=== PATIENT | female | born 1970 | race Caucasian/White ===

== ENCOUNTER 2018-08-13 05:52 | Day surgery (SDC) | payer OTHER ==
[~2018-08-13] VITALS: Ht 165.1 cm; Wt 95.3 kg
[~2018-08-13 05:52] MED LIST: LEVONOR/ETHI PO
[2018-08-13] MEDS ORDERED: LR 1,000 ML IV ONE (06:00)
[2018-08-13 06:22] LABS: HEMATOCRIT 40.9 % (36.0-47.0); HEMOGLOBIN 13.2 g/dl (12.0-15.5); MEAN CORPUSCULAR HEMOGLOBIN 28.6 pg (27.0-33.0); MEAN CORPUSCULAR HGB CONC 32.3 g/dl (32.0-36.5); MEAN CORPUSCULAR VOLUME 88.5 fl (80.0-96.0); PLATELET COUNT, AUTOMATED 274 10^3/uL (150-450); RED BLOOD COUNT 4.62 10^6/uL (4.00-5.40); WHITE BLOOD COUNT 10.6 10^3/uL (4.0-10.0)
[2018-08-13 06:50] LABS: URINE PREG TEST NEGATIVE (NEGATIVE)
[2018-08-13] MEDS ORDERED: MIDAZOLAM INJ 2 MG/2 ML VIAL (J2250) As Ordered ONE (07:28)
[2018-08-13] MEDS ORDERED: fentaNYL 100 MCG/2 ML INJECTION (J3010) As Ordered ONE (07:28)
[2018-08-13] MEDS ORDERED: ROCURONIUM BROMIDE 50 MG/5 ML VIAL As Ordered ONE ×2 (07:28→08:05)
[2018-08-13] MEDS ORDERED: PROPOFOL 200 MG/20 ML VIAL As Ordered ONE (07:28)
[2018-08-13] MEDS ORDERED: METHYLENE BLUE 0.5% (5MG/ML) 10 ML AMP (PROVAYBLUE)(Q9968 PER 1MG) As Ordered ONE (07:33)
[2018-08-13] MEDS ORDERED: BUPIVACAINE HCL 0.25% 10 ML VIAL As Ordered ONE (07:33)
[2018-08-13] MEDS ORDERED: LIDOCAINE 2% INJ 100 MG/5 ML SDV (FOR ANES.) As Ordered ONE (07:44)
[2018-08-13] MEDS ORDERED: dexameTHASONE 4 MG/ML 1ML VIAL (J1100) As Ordered ONE (07:44)
[2018-08-13] MEDS ORDERED: METOCLOPRAMIDE INJ 10MG/2ML VIAL (J2765) As Ordered ONE (07:44)
[2018-08-13] MEDS ORDERED: ONDANSETRON 4MG/2ML VIAL (J2405) As Ordered ONE (07:44)
[2018-08-13] MEDS ORDERED: PHENYLephrine HCL 500 MCG/5 ML (100MCG/ML) SYRINGE (J2370) As Ordered ONE (07:48)
[2018-08-13] MEDS ORDERED: KETOROLAC 60 MG/2 ML VIAL (J1885) As Ordered ONE (07:50)
[2018-08-13] MEDS ORDERED: HYDROmorphone HCL 2 MG/ML 1ML VIAL (J1170) As Ordered ONE (08:09)
[2018-08-13] MEDS ORDERED: OXYC1TAB23 PO (09:19)
[2018-08-13] MEDS ORDERED: IBUP80TA PO (09:20)
[2018-08-13] MEDS ORDERED: PERCOCET 5MG/325MG TAB PO PRN ×3 (09:45→10:00)
[2018-08-13] MEDS ORDERED: fentaNYL 100 MCG/2 ML INJECTION (J3010) IV PRN (09:45)
[2018-08-13] MEDS ORDERED: ONDANSETRON 4MG/2ML VIAL (J2405) IV PRN ×2 (09:45→10:00)
[2018-08-13] MEDS ORDERED: LR 1,000 ML IV SCH ×2 (09:45→10:00)
[2018-08-13] MEDS ORDERED: METOCLOPRAMIDE INJ 10MG/2ML VIAL (J2765) IV PRN (09:45)
[2018-08-13] MEDS ORDERED: KETOROLAC 30 MG/ML VIAL (J1885) IV PRN (10:00)
[2018-08-13] MEDS ORDERED: MORPHINE 4 MG/ML 1ML VIAL/SYRINGE (J2270) IV PRN (10:00)
[2018-08-13 15:00] VITALS: BP 133/72
[2018-08-13] MEDS ORDERED: DOCUSATE SODIUM 100 MG CAP PO SCH (21:00)
--- NOTE | 2018-08-13 21:49 | RO ---
DATE OF PROCEDURE: 08/13/2018 PREPROCEDURE DIAGNOSIS: Menorrhagia, fibroids. POSTPROCEDURE DIAGNOSIS: Menorrhagia, fibroids. PROCEDURE: Robotic-assisted laparoscopic hysterectomy and bilateral salpingo-oophorectomy, cystoscopy. SURGEON: Roney Lezama MD STAGE SET DESIGNER: Alexia Willett NP ANESTHESIA: General endotracheal. ESTIMATED BLOOD LOSS: 100 mL. URINE OUTPUT: 100 mL. FINDINGS: Globally enlarged uterus with evidence of fibroid changes, normal fallopian tubes, normal ovaries. Normal upper abdomen. DESCRIPTION OF PROCEDURE: The patient was taken to the operating room where general endotracheal anesthesia was induced. She was prepped and draped in a sterile fashion in the dorsal lithotomy position. A Gonzales catheter was placed. A Element Robotare uterine manipulator was placed. A periumbilical incision was made with a scalpel. The Veress needle was placed through the incision while tenting up on the skin of the abdomen. Intraabdominal location of the Veress needle was assessed with the use of a saline-filled syringe. Pneumoperitoneum was created. An 11 mm trocar using IZEA was inserted through this incision. Three 8 mm suprapubic ports were placed under direct visualization. The patient was placed in Trendelenburg position. The [employer] surgical robot was docked to the ports. Using the fenestrated bipolar instrument and the vessel sealer, the IP ligaments, round ligament attachments, round ligaments were coagulated and incised. The anterior and posterior leaves of the broad ligament were . A bladder flap was created. The vessel sealer was replaced with the monopolar Endo Mariely. The uterine vessels were coagulated and incised. Bladder flap was completed. An incision was made at the upper vagina at the level of the VCare cup. This was extended circumferentially around the upper vagina. The specimen, including the uterus, cervix, fallopian tubes and ovaries was removed through the vagina. Vaginal cuff was closed with #0 V-Loc suture in a running fashion. The pelvis was irrigated with good hemostasis noted. All instruments were removed. The robot was undocked. Cystoscopy was performed using a 70-degree cystoscope. Bilateral ureteral jets were identified. There was no evidence of injury to the bladder. Gonzales catheter was left out. All ports were removed and then the pneumoperitoneum released. The skin was closed with #4-0 Monocryl subcuticular sutures. Sponge, instrument and needle counts were correct. The patient went to the recovery room in stable condition. Alexia Willett NP, assisted with all aspects of the procedure from beginning to end. She assisted with positioning of the patient and placement of the ports, she manipulated the uterus throughout the procedure, removed the uterus at the end of the procedure. She subsequently helped closes the ports and help move the patient.
== END 2018-08-13 15:20 | disposition home or self-care (01) ==
LOC: M SDC 05:52
PROVIDERS: ATTEND Specialist
DX: N92.6 Irregular menstruation, unspecified (principal); N84.0 Polyp of corpus uteri; N72 Inflammatory disease of cervix uteri; D25.9 Leiomyoma of uterus, unspecified
CPT/HCPCS: 36415; 58571; 84703; 85027; 86850; 86900; 86901; 88309; J0690; J1100; J1170; J1885; J2250; J2370; J2405; J2765; J3010; Q9968